=== PATIENT | male | born 1960 | race Caucasian/White ===

== ENCOUNTER 2016-06-27 20:28 | Emergency (ER) | payer SELFPAY ==
[2016-06-27] MEDS ORDERED: Oxymetazoline 0.05% Nasal Spray 15 ML Bottle NAS ONE (20:46)
[2016-06-27] MEDS ORDERED: Lidocaine 1% 30 ML SDV INJECT ONE (20:46)
[2016-06-27] MEDS ORDERED: Take Home: Amoxicillin 875 MG Tab, 2 Tab Pack PO ONE (21:33)
[2016-06-27 21:45] VITALS: BP 142/105
--- NOTE | 2016-07-02 07:56 | ER ---
Date of Service: 06/27/2016 SUBJECTIVE: Bobby presents to emergency room with epistaxis from his left naris. States that he was cleaning his nose with a Q-tip when his dog jumped upon him which apparently caused injury to his nasal mucosa of his left naris. He was, however, experiencing epistaxis from both nares. He did pack the narrow toilet paper prior to arrival to the emergency room and states that he had been actively bleeding for approximately half hour prior to arriving to the emergency room. He states that he has never experienced epistaxis like this in the past. He states that he has not had any lab work done recently on an outpatient basis. PAST MEDICAL HISTORY: 1. Type 2 diabetes mellitus. 2. Chronic pain syndrome. 3. Hypertension. 4. Drug addiction. 5. Sleep disorder. MEDICATIONS: 1. Gabapentin. 2. [place] 10/325. 3. Jardiance. 4. Benazepril. 5. Aspirin. 6. Tizanidine. 7. Sitagliptin/metformin. 8. Zolpidem. 9. MS Contin. ALLERGIES: NKDA. REVIEW OF SYSTEMS: He states that he had not placed anything in his right naris. He denies any head or facial trauma and states that his only injury is secondary to what was previously mentioned in the history of present illness. PHYSICAL EXAMINATION: General: This is a 56-year-old male patient, who is in no acute distress. Vital Signs: Initially, blood pressure was 144/109, pulse rate was 112, temperature is 37.3, respiratory rate is 20, O2 saturation is 97%. His blood pressure decreased down to approximately 86 after the active bleeding was stopped and he was more able to relax. HEENT: Head is normocephalic, atraumatic. Eyes, PERRLA. Extraocular movements are intact. Nose, the patient is bleeding heavily from both nares, more so on the left than the right. There is no visible trauma noted. Lungs: Clear to auscultation. Heart: Regular rate and rhythm. Neurologic: The patient is extremely anxious and resistive to instrumentation of his nose in examination and treatment of his epistaxis. EMERGENCY ROOM COURSE: 2 sprays of Afrin nasal spray was applied to each naris as he was experiencing what appeared to be a posterior epistaxis as there was hemorrhage from both nares present. Prior to this, the patient was instructed to blow his nose. There was large amount of active bleeding from both nares. After the instillation of the nasal spray, a total of 2.5 mL of 1% lidocaine was atomized in the patient's right and left naris. I was unable to visualize any areas of active bleeding that would require cautery. Subsequently, a 7.5 cm anterior posterior rapid rhino device was placed in the patient's left naris. He continued to bleed briskly from his right naris. Subsequently, that naris was packed with half-inch ribbon gauze. Hemostasis was subsequently achieved. To note, the patient's nasal mucosa did appear to be quite scarred. It is unclear what the cause of this is. There was no large vessels evident that I was able to cauterize and subsequently resorted to placement of local vasoconstriction and packing of the nares. ASSESSMENT: Complex posterior epistaxis. PLAN: The patient will be discharged. Advised to follow up in 48 hours for removal of both nasal packs. He was set up to see Ear, Nose, and Throat on an outpatient basis. He is to return if he develops recurrence of his epistaxis prior to removal of the packing. All questions were answered. He was started on amoxicillin 875 mg twice daily for 7 days for infection prophylaxis. All questions were answered. MWK: 07/01/2016 14:20:11 MODL: 07/01/2016 22:41:53 /[id number]
== END 2016-06-27 21:44 | disposition home or self-care (01) ==
LOC: VM.ED 20:28
DX: R04.0 Epistaxis (principal); E11.9 Type 2 diabetes mellitus without complications; I10 Essential (primary) hypertension; Z79.82 Long term (current) use of aspirin; Z79.899 Other long term (current) drug therapy; Z88.5 Allergy status to narcotic agent
CPT/HCPCS: 30901; 30903; 30905; 99283; A9270

== ENCOUNTER 2017-04-07 11:27 | Emergency (ER) | payer SELFPAY ==
[2017-04-07] MEDS ORDERED: Aspirin 81 MG Tab.Chew PO ONE (11:42)
[2017-04-07] MEDS ORDERED: GI Cocktail Oral Solution 30 ML PO ONE (11:42)
[2017-04-07] MEDS ORDERED: Sodium Chloride 0.9% 10 ML Syringe FLUSH PRN (11:42)
[2017-04-07] MEDS ORDERED: LORazepam 2 MG/ML MDV IVPUSH ONE (12:03)
[2017-04-07] MEDS ORDERED: Aspirin 81 MG Tab.EC PO ONE (12:04)
[2017-04-07 12:30] LABS: CHLORIDE,CL 102 mmol/L (98-107); SODIUM,NA 138 mmol/L (136-145)
--- NOTE | 2017-04-07 12:53 | EDM.PDOC ---
ED HPI GENERAL MEDICAL PROBLEM - General Chief Complaint: Cardiovascular Problem Stated Complaint: CHEST PAIN Time Seen by Provider: 04/07/17 11:41 Source of Information: Reports: Patient History Limitations: Reports: No Limitations - History of Present Illness INITIAL COMMENTS - FREE TEXT/NARRATIVE: Patient describes chest pain over the last 2 days. He reports this to be more epigastric with radiation to the left side of the abdomen. It happens after eating. A close friend recently of an [place] and he is also thinking of this as well. He denies shortness of breath, no diaphoresis. He does have some pain to his left elbow, but describes that this is likely from his injury he suffered with metal plate insertion to his left elbow. He did take 2 baby aspirin. He does have HTN, diabetes, is taking medication for hyperlipidemia. He denies smoking, drinking, or illegal drug use. Onset Date: 04/05/17 Duration: Intermittent Location: Reports: Chest, Abdomen Quality: Reports: Ache, Burning Severity: Mild Improves with: Reports: Medication Worsens with: Reports: None Associated Symptoms: Reports: Chest Pain - Related Data Allergies Allergy/AdvReac Type Severity Reaction Status Date / Time No Known Allergies Allergy Verified 06/27/16 20:31 Home Meds: Home Meds Aspirin [Romario Chewable] 81 mg PO DAILY 07/03/14 [History] Benazepril [Lotensin] 10 mg PO DAILY 07/03/14 [History] Hydrocodone/Acetaminophen [Hydrocodon-Acetaminophn 10-325] 1 each PO Q6H [History] Morphine [MS Contin] 30 mg PO Q6H 07/03/14 [History] Zolpidem Tartrate 10 mg PO DAILY 07/03/14 [History] sitaGLIPtin Phos/Metformin HCl [Janumet Xr 50-1,000 mg Tablet] 1 each PO DAILY 07/03/14 [History] tiZANidine HCl [Tizanidine HCl] 1 - 2 mg PO DAILY 07/03/14 [History] Empagliflozin [Jardiance] 1 tab PO DAILY 06/27/16 [History] Gabapentin [Neurontin] 400 mg PO BID 06/27/16 [History] Past Medical History Cardiovascular History: Reports: Hypertension Social & Family History - Tobacco Use Smoking Status *Q: Never Smoker - Alcohol Use Days Per Week of Alcohol Use: 0 - Recreational Drug Use Recreational Drug Use: Yes Recreational Drug Type: Reports: Marijuana/Hashish ED ROS GENERAL - Review of Systems Review Of Systems: See Below Constitutional: Reports: No Symptoms HEENT: Reports: No Symptoms Respiratory: Reports: No Symptoms Cardiovascular: Reports: Chest Pain Endocrine: Reports: No Symptoms GI/Abdominal: Reports: Abdominal Pain : Reports: No Symptoms Musculoskeletal: Reports: No Symptoms Skin: Reports: No Symptoms Neurological: Reports: No Symptoms Psychiatric: Reports: No Symptoms Hematologic/Lymphatic: Reports: No Symptoms Immunologic: Reports: No Symptoms ED EXAM, GENERAL - Physical Exam Exam: See Below Exam Limited By: No Limitations General Appearance: Alert, WD/WN, No Apparent Distress Eye Exam: Bilateral Eye: EOMI, PERRL Ears: Normal TMs Throat/Mouth: Normal Inspection, Normal Lips, Normal Teeth, Normal Gums, Normal Oropharynx, Normal Voice, No Airway Compromise Head: Atraumatic, Normocephalic Neck: Normal Inspection, Supple, Non-Tender, Full Range of Motion Respiratory/Chest: No Respiratory Distress, Lungs Clear, Normal Breath Sounds, No Accessory Muscle Use, Chest Non-Tender Cardiovascular: Normal Peripheral Pulses, Regular Rate, Rhythm, No Edema, No Gallop, No JVD, No Murmur, No Rub Peripheral Pulses: 2+: Posterior Tibial (L), Posterior Tibial (R), Dorsalis Pedis (L), Dorsalis Pedis (R) GI/Abdominal: Normal Bowel Sounds, Soft, Non-Tender, No Organomegaly, No Distention, No Abnormal Bruit, No Mass Back Exam: Normal Inspection, Full Range of Motion, NT Extremities: Normal Inspection, Normal Range of Motion, Non-Tender, Normal Capillary Refill, No Pedal Edema Neurological: Alert, Oriented, CN II-XII Intact, Normal Cognition, Normal Gait, Normal Reflexes, No Motor/Sensory Deficits Psychiatric: Anxious Skin Exam: Warm, Dry, Intact, Normal Color, No Rash Lymphatic: No Adenopathy EKG INTERPRETATION EKG Date: 04/07/17 Time: 11:35 Rhythm: Other (sinus tach at 101) Rate (Beats/Min): 101 [place]: Normal P-Wave: Present QRS: Normal ST-T: Normal QT: Normal Comparison: NA - No Prior EKG EKG Interpretation Comments: 1. sinus tachycardia 2. minimal st depression 3. abnormal ecg Course - Orders/Labs/Meds Orders: Active Orders 24 hr Category Date Time Status EKG Documentation Completion [RC] ROUTINE Care 04/07/17 11:42 Active Chest 1V Frontal [CR] Stat Exams 04/07/17 11:42 Ordered Sodium Chloride 0.9% [Saline Flush] Med 04/07/17 11:42 Active 10 ml FLUSH ASDIRECTED PRN Saline Lock Insert [OM.PC] Routine Oth 04/07/17 11:42 Ordered Medication Orders Sodium Chloride (Saline Flush) 10 ml FLUSH ASDIRECTED PRN PRN Reason: Keep Vein Open Labs: Laboratory Tests 04/07/17 04/07/17 04/07/17 Range/Units 11:51 11:51 11:51 WBC 8.3 (4.0-10.0) x10^3/uL RBC 5.17 (4.5-6.0) x10^6/uL Hgb 14.9 (14.0-18.0) g/dL Hct 43.7 (40.0-52.0) % MCV 84.5 (78.0-93.0) fL MCH 28.8 (26.0-32.0) pg MCHC 34.1 (32.0-36.0) g/dL RDW Coeff of [place] 12.5 (10.0-15.0) % Plt Count 261 (130-400) x10^3/uL Neut % (Auto) 57.6 (50.0-80.0) % Lymph % (Auto) 31.6 (25.0-50.0) % [place] % (Auto) 6.4 (2.0-11.0) % Eos % (Auto) 3.7 (0.0-4.0) % Baso % (Auto) 0.7 (0.2-1.2) % PT 10.4 (9.8-11.8) SEC INR 1.0 L (2.0-3.5) Sodium 138 (136-145) mmol/L Potassium 4.4 (3.5-5.1) mmol/L Chloride 102 (98-107) mmol/L Carbon Dioxide 28 (21-32) mmol/L BUN 17 (7-18) mg/dL Creatinine 1.0 (0.70-1.30) mg/dL Est Cr Clr Drug Dosing TNP Estimated GFR (MDRD) > 60 Glucose 212 H (74-106) mg/dL Calcium 9.0 (8.5-10.1) mg/dL Corrected Calcium 9.08 (8.5-10.1) mg/dL Total Bilirubin 0.5 (0.2-1.0) mg/dL AST 26 (15-37) U/L ALT 48 (16-63) U/L Alkaline Phosphatase 97 (46-116) U/L Troponin I < 0.017 (<=0.056) ng/mL NT-Pro-B Natriuret Pep 26 (<=125) pg/mL Total Protein 7.6 (6.4-8.2) g/dL Albumin 3.9 (3.4-5.0) g/dL Globulin 3.7 Albumin/Globulin Ratio 1.05 TSH, Ultra Sensitive 1.756 (0.358-3.74) uIU/mL Meds: Medications Generic Name Dose Route Start Last Admin Trade Name Freq PRN Reason Stop Dose Admin Sodium Chloride 10 ml 04/07/17 11:42 Saline Flush FLUSH ASDIRECTED PRN Keep Vein Open Discontinued Medications Generic Name Dose Route Start Last Admin Trade Name Freq PRN Reason Stop Dose Admin Al Hydroxide/Mg Hydroxide 30 ml 04/07/17 11:42 04/07/17 12:11 Gi Cocktail PO 04/07/17 11:43 30 ml ONETIME ONE Administration Aspirin 324 mg 04/07/17 11:42 04/07/17 12:11 Aspirin PO 04/07/17 11:43 162 mg ONETIME ONE Administration Aspirin 162 mg 04/07/17 12:04 04/07/17 12:14 Halfprin PO 04/07/17 12:05 Not Given ONETIME ONE Lorazepam 0.5 mg 04/07/17 12:03 04/07/17 12:11 Ativan IVPUSH 04/07/17 12:04 0.5 mg ONETIME ONE Administration Departure - Departure Time of Disposition: 13:10 Disposition: Home, Self-Care 01 Condition: Good Clinical Impression: Chest pain, GERD (gastroesophageal reflux disease) Instructions: Nonspecific Chest Pain, [id number], Heartburn, [id number] Forms: ED Department Discharge Additional Instructions: Follow up with your primary doctor as needed for additional symptom management. Make sure you stay well hydrated. If you experience additional chest pain, certainly return for further evaluation. Your labs and diagnostic tests were negative for an acute heart attack. Please call with any questions or concerns. - Problem List & Annotations (1) Chest pain SNOMED Code(s): 20315315 Code(s): R07.9 - CHEST PAIN, UNSPECIFIED Status: Acute Priority: Low Current Visit: Yes Qualifiers: Chest pain type: other chest pain Qualified Code(s): R07.89 - Other chest pain; R07.8 - Other chest pain (2) GERD (gastroesophageal reflux disease) SNOMED Code(s): 193575429 Code(s): K21.9 - GASTRO-ESOPHAGEAL REFLUX DISEASE WITHOUT ESOPHAGITIS Status: Acute Current Visit: Yes Qualifiers: Esophagitis presence: without esophagitis Qualified Code(s): K21.9 - Gastro -esophageal reflux disease without esophagitis - Problem List Review Problem List Initiated/Reviewed/Updated: Yes - My Orders Last 24 Hours: My Active Orders 04/07/17 11:42 EKG Documentation Completion [RC] ROUTINE Chest 1V Frontal [CR] Stat Sodium Chloride 0.9% [Saline Flush] 10 ml FLUSH ASDIRECTED PRN Saline Lock Insert [OM.PC] Routine - Assessment/Plan Last 24 Hours: My Active Orders 04/07/17 11:42 EKG Documentation Completion [RC] ROUTINE Chest 1V Frontal [CR] Stat Sodium Chloride 0.9% [Saline Flush] 10 ml FLUSH ASDIRECTED PRN Saline Lock Insert [OM.PC] Routine Assessment:: GERD Atypical chest pain Plan: Follow up with your primary doctor as needed for additional symptom management. Make sure you stay well hydrated. If you experience additional chest pain, certainly return for further evaluation. Your labs and diagnostic tests were negative for an acute heart attack. Please call with any questions or concerns.
[2017-04-07 14:55] VITALS: BP 158/90
== END 2017-04-07 13:10 | disposition home or self-care (01) ==
LOC: VM.ED 11:27
DX: K21.9 Gastro-esophageal reflux disease without esophagitis (principal); R07.9 Chest pain, unspecified; I10 Essential (primary) hypertension; Z79.82 Long term (current) use of aspirin; Z79.899 Other long term (current) drug therapy
CPT/HCPCS: 36415; 71045; 80053; 83880; 84443; 84484; 85025; 85610; 93005; 93010; 96374; 99284-GF; 99285; A9270-GY; J2060

== ENCOUNTER 2021-09-07 16:46 | Emergency (ER) | payer SELFPAY ==
[2021-09-07 18:12] VITALS: BP 136/72; PULSE 76
== END 2021-09-07 18:00 | disposition home or self-care (01) ==
LOC: VM.ED 16:46
DX: S93.412A Sprain of calcaneofibular ligament of left ankle, initial encounter (principal); I10 Essential (primary) hypertension; E11.9 Type 2 diabetes mellitus without complications; Z79.899 Other long term (current) drug therapy; Z79.82 Long term (current) use of aspirin; Z79.84 Long term (current) use of oral hypoglycemic drugs; X50.1XXA Overexertion from prolonged static or awkward postures, initial encounter
CPT/HCPCS: 73610-LT; 99283

== ENCOUNTER 2022-04-03 22:48 | Observation (INO) | payer BC ==
[2022-04-03] MEDS ORDERED: Flumazenil 0.1 MG/ML 5 ML MDV IVPUSH ONE ×3 (23:19→23:39)
[2022-04-03] MEDS ORDERED: Sodium Chloride 0.9% 1,000 ML IV ONE (23:35)
[2022-04-04] MEDS ORDERED: Sodium Chloride 0.9% 10 ML Syringe FLUSH PRN (00:09)
[2022-04-04] MEDS ORDERED: Ondansetron 4 MG Tab.DIS PO PRN (00:09)
[2022-04-04] MEDS ORDERED: Acetaminophen 325 MG Tab PO PRN (00:09)
[2022-04-04] MEDS ORDERED: Ondansetron 4 MG/2 ML SDV IV PRN (00:09)
[2022-04-04] MEDS ORDERED: Acetaminophen/HYDROcodone 325-10 MG Tab PO PRN (00:11)
[2022-04-04] MEDS ORDERED: Sodium Chloride 0.9% 1,000 ML IV SCH (00:15)
[2022-04-04] MEDS: Morphine 30 MG Tab.ER PO SCH ×2 (01:02→08:16)
[2022-04-04 06:31] VITALS: BP 147/76; PULSE 73
[2022-04-04] MEDS ORDERED: Docusate Sodium 100 MG Cap PO SCH (09:00)
[2022-04-04] MEDS ORDERED: Cholecalciferol (Vitamin D3) 25 MCG Tab PO SCH (09:00)
[2022-04-04] MEDS ORDERED: Aspirin 81 MG Tab.Chew PO SCH (09:00)
[2022-04-04] MEDS ORDERED: Lisinopril 5 MG Tab PO SCH (09:00)
[2022-04-04] MEDS ORDERED: Gabapentin 400 MG Cap PO SCH (21:00)
== END 2022-04-04 10:00 | disposition home or self-care (01) ==
LOC: VM.ED 22:48 → VM.MS 23:53
PROVIDERS: ADMIT Physician Assistant Medical; ATTEND Physician Assistant Medical
DX: F13.10 Sedative, hypnotic or anxiolytic abuse, uncomplicated (principal); R41.0 Disorientation, unspecified; E11.9 Type 2 diabetes mellitus without complications; I10 Essential (primary) hypertension; G89.29 Other chronic pain; M79.603 Pain in arm, unspecified; Z79.899 Other long term (current) drug therapy; Z79.82 Long term (current) use of aspirin
CPT/HCPCS: 96361; 96374; 99285-25; A9270-GY; J3490; J7030

== ENCOUNTER 2024-11-25 15:54 | Emergency (ER) | payer OTHER, BC ==
[2024-11-25] MEDS: Ondansetron 4 MG/2 ML SDV IVPUSH ONE (16:09)
[2024-11-25 16:10] LABS: BASOPHILS ABSOLUTE AUTO 0.1 x10^3/uL (0.0-0.2); BASOPHILS PERCENT AUTO 0.6 % (0.2-1.2); EOSINOPHILS ABSOLUTE AUTO 0.5 x10^3/uL (0.0-0.5); EOSINOPHILS PERCENT AUTO 3.9 % (0.0-4.0); IMMATURE GRAN ABSOLUTE AUTO 0.01 x10^3/uL (0.00-0.07); IMMATURE GRAN PERCENT AUTO 0.10 % (0.00-0.43); LYMPHOCYTES PERCENT AUTO 47.8 % (25.0-50.0); MONOCYTES ABSOLUTE AUTO 0.7 x10^3/uL (0.0-0.8); MONOCYTES PERCENT AUTO 5.5 % (2.0-11.0); NEUTROPHILS ABSOLUTE AUTO 5.1 x10^3/uL (1.8-7.7); NEUTROPHILS PERCENT AUTO 42.1 % (50.0-80.0); PLATELET COUNT,PLT 267 x10^3/uL (130-400); RED BLOOD CELL COUNT 5.30 x10^6/uL (4.5-6.0); WHITE BLOOD CELL COUNT,WBC 12.2 x10^3/uL (4.0-10.0)
[2024-11-25 16:21] LABS: LYMPHOCYTES ABSOLUTE AUTO 5.8 x10^3/uL (1.0-4.8)
[2024-11-25 16:35] LABS: A/G RATIO 1.08; ALANINE AMINOTRANSFERASE,ALT 50 U/L (16-63); ASPARTATE AMNIOTRANSFERASE,AST 31 U/L (15-37); BILIRUBIN TOTAL 0.7 mg/dL (0.2-1.0); BLOOD UREA NITROGEN,BUN 14 mg/dL (7-18); CARBON DIOXIDE,CO2 24 mmol/L (21-32); CHLORIDE,CL 98 mmol/L (98-107); CREATININE 1.3 mg/dL (0.70-1.30); POTASSIUM,K 4.4 mmol/L (3.5-5.1); PROTEIN TOTAL,TP 7.7 g/dL (6.4-8.2); SODIUM,NA 133 mmol/L (136-145)
[2024-11-25 16:36] LABS: ESTIMATED GFR 62 mL/min (>=60); GLUCOSE RANDOM 500 mg/dL (70-99)
[2024-11-25] MEDS ORDERED: 50% Dextrose in Water 50 ML Syringe IVPUSH PRN (16:57)
[2024-11-25] MEDS: Insulin Regular, Human 100 Units/ML 10 ML Vial SUBCUT ONE (17:36)
[2024-11-25 18:59] VITALS: BP 192/91; PULSE 81
== END 2024-11-25 19:45 | disposition short-term general hospital (02) ==
LOC: VM.ED 15:54
DX: S52.102A Unspecified fracture of upper end of left radius, initial encounter for closed fracture (principal); S52.002A Unspecified fracture of upper end of left ulna, initial encounter for closed fracture; E11.65 Type 2 diabetes mellitus with hyperglycemia; I10 Essential (primary) hypertension; K21.9 Gastro-esophageal reflux disease without esophagitis; Z88.6 Allergy status to analgesic agent; Z79.899 Other long term (current) drug therapy; W01.0XXA Fall on same level from slipping, tripping and stumbling without subsequent striking against object, initial encounter; Y93.89 Activity, other specified
CPT/HCPCS: 29105; 29125; 36415; 70450; 70486; 72125; 73090-LT; 73090-RT; 80053; 82947; 85025; 96361; 96374; 96375; 96376; 99283; 99285-25; A9270-GY; J1171; J2405; J7030